=== PATIENT | male | born 1985 | race Two or more races ===

== ENCOUNTER 2019-11-17 09:41 | Emergency (ER) | payer MEDICAID, OTHER ==
[~2019-11-17] VITALS: Ht 177.8 cm; Wt 136.1 kg
[2019-11-17 09:48] VITALS: BP 123/80
[2019-11-17 10:30] LABS: Eosinophils # (auto) 0.2 uL; Neutrophils # (auto) 6.3 uL
[2019-11-17 10:33] LABS: Basophils # (auto) 0 uL; Basophils % (auto) 0.5 % (0.0-2.0); Eosinophils % (auto) 2.2 % (0.0-7.0); Hematocrit 40.2 % (41.0-53.0); Hemoglobin 12.7 g/dL (13.5-17.5); Lymphocytes # (auto) 1.8 uL; Lymphocytes % (auto) 19.9 % (10.0-50.0); Mean Corpuscular Hemoglobin 24.6 pg (28.0-32.0); Mean Corpuscular Hgb Conc. 31.7 g/dL (32.0-36.0); Mean Corpuscular Volume 77.8 fL (80.0-100.0); Monocytes # (auto) 0.7 uL; Monocytes % (auto) 7.4 % (0.0-12.0); Nucleated Red Blood Cells % 0.2 %; Platelet Count (auto) 311 10^3/uL (140-450); Red Blood Cells 5.16 10^6/uL (4.5-5.90); Red Cell Distribution Width 17.5 % (11.8-14.3)
[2019-11-17 10:45] LABS: Albumin 3.3 g/dL (3.4-5.0); Calcium 8.4 mg/dL (8.5-10.1); Potassium 3.7 mmol/L (3.5-5.1)
[2019-11-17 10:48] LABS: BUN/Creatinine Ratio 17.3; Bilirubin, Total 0.3 mg/dL (0.2-1.0); Total Protein 7.8 g/dL (6.4-8.2)
[2019-11-17 10:49] LABS: INR 0.98 (0.9-1.15); Partial Thromboplastin Time 26.8 sec (23.64-32.05)
== END 2019-11-17 12:13 | disposition left against medical advice (07) ==
LOC: ER 09:41 → EDBD 09:41 → ER 12:13
DX: I83.90 Asymptomatic varicose veins of unspecified lower extremity (principal); Z53.21 Procedure and treatment not carried out due to patient leaving prior to being seen by health care provider
CPT/HCPCS: 36415; 80053; 85025; 85610; 85730; 86850; 86900; 86901

== ENCOUNTER 2021-03-04 10:31 | Emergency (ER) | payer MEDICAID ==
[~2021-03-04] VITALS: Ht 177.8 cm; Wt 158.8 kg
[2021-03-04 10:31] VITALS: BP 150/80
== END 2021-03-04 11:15 | disposition left against medical advice (07) ==
LOC: ER 10:31 → EDBD 10:31 → ER 11:15
DX: I83.892 Varicose veins of left lower extremity with other complications (principal); J45.909 Unspecified asthma, uncomplicated
CPT/HCPCS: 12001

== ENCOUNTER 2023-08-19 15:05 | Emergency (ER) | payer MEDICAID ==
[~2023-08-19] VITALS: Ht 193 cm; Wt 160.0 kg
[2023-08-19 16:01] LABS: Hemoglobin 12.4 g/dL (13.5-17.5)
[2023-08-19 16:03] LABS: Basophils # (auto) 0 10 ^3/uL (0-0.2); Basophils % (auto) 0.5 % (0.0-2.0); Eosinophils # (auto) 0.2 10 ^3/uL (0-0.8); Eosinophils % (auto) 1.8 % (0.0-7.0); Hematocrit 40.3 % (41.0-53.0); Lymphocytes # (auto) 1.3 10 ^3/uL (0.4-5.4); Lymphocytes % (auto) 13.5 % (10.0-50.0); Mean Corpuscular Hemoglobin 24.9 pg (28.0-32.0); Mean Corpuscular Hgb Conc. 30.7 g/dL (32.0-36.0); Mean Corpuscular Volume 81.2 fL (80.0-100.0); Monocytes # (auto) 0.6 10 ^3/uL (0-1.3); Monocytes % (auto) 6.1 % (0.0-12.0); Neutrophils # (auto) 7.3 10 ^3/uL (1.6-8.6); Neutrophils % (auto) 78.1 % (37.0-80.0); Red Blood Cells 4.96 10^6/uL (4.5-5.90); White Blood Cell 9.4 10^3/uL (4.4-10.8)
[2023-08-19 16:22] LABS: Alanine Aminotransferase 22 U/L (7-40); Albumin 4.6 g/dL (3.2-4.8); Alkaline Phosphatase 104 U/L (46-116); Anion Gap 8 (5-15); Aspartate Aminotransferase 22 U/L (13-40); BUN/Creatinine Ratio 16.5 (10.0-20.0); Bilirubin, Total 0.3 mg/dL (0.2-1.0); Blood Urea Nitrogen 14 mg/dL (9-23); Calcium 9.7 mg/dL (8.5-10.1); Carbon Dioxide 33 mmol/L (20-30); Chloride 95 mmol/L (98-107); Glucose 309 mg/dL (74-106); Lactic Acid w/Reflex 2.3 mmol/L (0.4-2.0); Potassium 4.4 mmol/L (3.5-5.1); Sodium 136 mmol/L (136-145); Total Protein 8.5 g/dL (5.7-8.2)
[2023-08-19 16:50] LABS: COVID19 ANTIGEN SOFIA FIA NEGATIVE (NEGATIVE)
[2023-08-19] MEDS ORDERED: HYDROcodone-ACET 10/325MG TAB PO ONE (18:30)
[2023-08-19 21:27] VITALS: PULSE 100; RESP 20; O2SAT 96
[2023-08-20] VITALS: BP 139/86; PULSE 113; RESP 20; TEMP 98.7; O2SAT 94
== END 2023-08-20 00:35 | disposition short-term general hospital (02) ==
LOC: ER 15:05 → EDBD 15:05 → EDUNIT# 15:05 → ER 08-20 00:35
DX: J95.03 Malfunction of tracheostomy stoma (principal); I11.0 Hypertensive heart disease with heart failure; I50.9 Heart failure, unspecified; E11.9 Type 2 diabetes mellitus without complications; J44.9 Chronic obstructive pulmonary disease, unspecified; I48.91 Unspecified atrial fibrillation; Z98.890 Other specified postprocedural states; Z20.822 Contact with and (suspected) exposure to COVID-19
CPT/HCPCS: 36415; 71045; 80053; 83605; 83880; 85025; 87040; 87426; 93005

== ENCOUNTER 2023-08-29 10:06 | Inpatient (IN) | payer MEDICAID ==
[~2023-08-29] VITALS: Ht 182.9 cm; Wt 149.5 kg
[2023-08-29] VITALS (8 sets, daily range): BP systolic 121–126; BP diastolic 65–76; PULSE 99–135; RESP 15–28; TEMP 99.1; O2SAT 70–99
[2023-08-29 11:27] LABS: Alanine Aminotransferase 16 U/L (7-40); Alkaline Phosphatase 84 U/L (46-116); Anion Gap 6 (5-15); BUN/Creatinine Ratio 17.1 (10.0-20.0); Blood Urea Nitrogen 14 mg/dL (9-23); Carbon Dioxide 35 mmol/L (20-30); Chloride 96 mmol/L (98-107); Glucose 177 mg/dL (74-106); Lactic Acid w/Reflex 2.1 mmol/L (0.4-2.0); Potassium 3.9 mmol/L (3.5-5.1); Sodium 137 mmol/L (136-145)
[2023-08-29 11:28] LABS: Albumin 4.3 g/dL (3.2-4.8); Aspartate Aminotransferase 16 U/L (13-40); Bilirubin, Total 0.7 mg/dL (0.2-1.0); Total Protein 7.9 g/dL (5.7-8.2)
[2023-08-29 11:39] LABS: INR 1.04 (0.9-1.15); Partial Thromboplastin Time 30.6 SEC (24.5-34.5); Prothrombin Time 10.9 sec (9.3-11.8)
[2023-08-29 12:06] LABS: Eosinophils # (auto) 0 10 ^3/uL (0-0.8); Lymphocytes # (auto) 0.7 10 ^3/uL (0.4-5.4); Monocytes # (auto) 0.7 10 ^3/uL (0-1.3); Nucleated Red Blood Cells % 0.1 %; Red Blood Cells 4.69 10^6/uL (4.5-5.90)
[2023-08-29 12:12] LABS: Basophils # (auto) 0.1 10 ^3/uL (0-0.2); Basophils % (auto) 0.5 % (0.0-2.0); Eosinophils % (auto) 0.4 % (0.0-7.0); Hematocrit 37.8 % (41.0-53.0); Hemoglobin 11.7 g/dL (13.5-17.5); Lymphocytes % (auto) 6.5 % (10.0-50.0); Mean Corpuscular Hemoglobin 24.9 pg (28.0-32.0); Mean Corpuscular Hgb Conc. 30.9 g/dL (32.0-36.0); Mean Corpuscular Volume 80.6 fL (80.0-100.0); Monocytes % (auto) 7.2 % (0.0-12.0); Neutrophils # (auto) 8.7 10 ^3/uL (1.6-8.6); Neutrophils % (auto) 85.4 % (37.0-80.0); Red Cell Distribution Width 17.4 % (11.8-14.3); White Blood Cell 10.2 10^3/uL (4.4-10.8)
[2023-08-29 12:42] LABS: Rapid Influenza A Negative (Negative); Rapid Influenza B Negative (Negative)
[2023-08-29 12:43] LABS: COVID19 ANTIGEN SOFIA FIA NEGATIVE (NEGATIVE)
[2023-08-29] MEDS ORDERED: ALBUTEROL MEDNEB 2.5 mg/3ml NEB NEB ONE (13:45)
[2023-08-29] MEDS ORDERED: IPRATROPIUM BROM 0.5 MG/2.5ML INH SOL NEB ONE (13:45)
[2023-08-29] MEDS ORDERED: FUROSEMIDE 40 MG/4 ML VIAL IV ONE (14:00)
[2023-08-29] MEDS ORDERED: FUROSEMIDE 100 MG/10ML VIAL IV ONE (14:15)
[2023-08-29] MEDS ORDERED: ONDANSETRON HCL 4 MG/2 ML VIAL IV PRN (15:00)
[2023-08-29] MEDS ORDERED: methylPREDNISolone SOD SUCC 125 MG/2 ML VL IV ONE (15:00)
[2023-08-29] MEDS ORDERED: DOCUSATE SOD 100 MG CAP PO PRN (15:00)
[2023-08-29] MEDS ORDERED: SODIUM CHLORIDE 0.9% 1,000 ML IV SCH (15:00)
[2023-08-29] MEDS ORDERED: DEXTROSE (50%) 50ML SYRG IV PRN (15:00)
[2023-08-29] MEDS ORDERED: MORPHINE SULFATE INJ 2 MG/ml SYRG IV PRN (15:00)
[2023-08-29 16:19] LABS: Base Excess 5.5 mmol/L (-2.0-2.0)
[2023-08-29 16:31] LABS: Lactic Acid w/Reflex 2.1 mmol/L (0.4-2.0)
[2023-08-29] MEDS: ACCU-CHEK COMFORT CURVE STRIP VI SCH ×2 (17:00→22:15)
[2023-08-29] MEDS: cefTRIAXone 1GM/50ML D5W 50 ML IV SCH (17:07)
[2023-08-29 17:52] LABS: Urine Bacteria NONE SEEN /hpf (None Seen); Urine Blood 1+ /uL (Negative); Urine Clarity Clear (Clear); Urine Color Colorless (Yellow); Urine Mucus FEW (None Seen); Urine Protein, UAD Negative (Negative); Urine Specific Gravity 1.012 (1.001-1.035); Urine Urobilinogen Normal (Negative); Urine WBC 1 /hpf (0 - 3); Urine pH 5.5 (5.0-8.0)
[2023-08-29] MEDS: LEVALBUTEROL HCL 1.25 MG/3 ML NEB NEB SCH ×2 (18:08→22:31)
[2023-08-29] MEDS: IPRATROPIUM BROM 0.5 MG/2.5ML INH SOL NEB SCH ×2 (18:08→22:31)
[2023-08-29] MEDS: AZITHROMYCIN 500MG/ 250ML 250 ML IV SCH (18:25)
[2023-08-29] MEDS: InsuLIN REG 1unit/0.01ml Soln (100units/ml) SC SCH ×2 (19:07→22:21)
[2023-08-29] MEDS ORDERED: ACETAMINOPHEN 325 MG TAB PO PRN (19:15)
[2023-08-29] MEDS: SODIUM CHLORIDE 0.9% 1,000 ML IV SCH (19:56)
[2023-08-29] MEDS: ENOXAPARIN SOD 100 MG/1 ML SYRINGE SC SCH (22:20)
[2023-08-29] MEDS: methylPREDNISolone SOD SUCC 125 MG/2 ML VL IV SCH (22:20)
[2023-08-30] VITALS (33 sets, daily range): BP systolic 100–153; BP diastolic 52–91; PULSE 89–133; RESP 14–50; TEMP 98–98.3; O2SAT 21–96
[2023-08-30] MEDS: IPRATROPIUM BROM 0.5 MG/2.5ML INH SOL NEB SCH ×3 (01:52→11:37)
[2023-08-30] MEDS: LEVALBUTEROL HCL 1.25 MG/3 ML NEB NEB SCH ×6 (01:52→22:29)
[2023-08-30 05:47] LABS: Basophils # (auto) 0 10 ^3/uL (0-0.2); Eosinophils # (auto) 0 10 ^3/uL (0-0.8); Hematocrit 40.5 % (41.0-53.0); Hemoglobin 12.5 g/dL (13.5-17.5); Lymphocytes # (auto) 0.6 10 ^3/uL (0.4-5.4); Lymphocytes % (auto) 5.7 % (10.0-50.0); Mean Corpuscular Hemoglobin 24.8 pg (28.0-32.0); Mean Corpuscular Hgb Conc. 30.9 g/dL (32.0-36.0); Mean Corpuscular Volume 80.4 fL (80.0-100.0); Monocytes # (auto) 0.2 10 ^3/uL (0-1.3); Monocytes % (auto) 1.8 % (0.0-12.0); Neutrophils # (auto) 9.4 10 ^3/uL (1.6-8.6); Neutrophils % (auto) 92.5 % (37.0-80.0); Red Blood Cells 5.04 10^6/uL (4.5-5.90); Red Cell Distribution Width 17.5 % (11.8-14.3); White Blood Cell 10.2 10^3/uL (4.4-10.8)
[2023-08-30 06:12] LABS: Alanine Aminotransferase 13 U/L (7-40); Alkaline Phosphatase 95 U/L (46-116); Anion Gap 6 (5-15); BUN/Creatinine Ratio 15.4 (10.0-20.0); Blood Urea Nitrogen 12 mg/dL (9-23); Calcium 9.4 mg/dL (8.7-10.4); Carbon Dioxide 38 mmol/L (20-30); Chloride 94 mmol/L (98-107); Glucose 238 mg/dL (74-106); Potassium 3.7 mmol/L (3.5-5.1); Sodium 138 mmol/L (136-145)
[2023-08-30 06:13] LABS: Albumin 4.6 g/dL (3.2-4.8); Aspartate Aminotransferase 15 U/L (13-40); Bilirubin, Total 0.4 mg/dL (0.2-1.0); Total Protein 8.9 g/dL (5.7-8.2)
[2023-08-30] MEDS: methylPREDNISolone SOD SUCC 125 MG/2 ML VL IV SCH ×2 (06:25→13:14)
[2023-08-30] MEDS: ACCU-CHEK COMFORT CURVE STRIP VI SCH ×3 (06:48→13:14)
[2023-08-30] MEDS ORDERED: LORazepam 2MG/ML-1ML VIAL IV ONE (07:00)
[2023-08-30] MEDS: InsuLIN REG 1unit/0.01ml Soln (100units/ml) SC SCH ×2 (07:19→11:08)
[2023-08-30] MEDS: AZITHROMYCIN 500MG/ 250ML 250 ML IV SCH (09:44)
[2023-08-30] MEDS: ENOXAPARIN SOD 100 MG/1 ML SYRINGE SC SCH (09:44)
[2023-08-30] MEDS: cefTRIAXone 1GM/50ML D5W 50 ML IV SCH (09:44)
[2023-08-30] MEDS: SODIUM CHLORIDE 0.9% 1,000 ML IV SCH (09:47)
[2023-08-30] MEDS ORDERED: PANTOPRAZOLE 40 MG/10 ML VIAL INJ IV SCH (10:00)
[2023-08-30] MEDS ORDERED: FUROSEMIDE 40 MG/4 ML VIAL IV ONE (10:45)
[2023-08-30] MEDS ORDERED: LORazepam 2MG/ML-1ML VIAL IV PRN ×2 (10:45→16:15)
[2023-08-30] MEDS ORDERED: LABETALOL HCL 5 MG/ML 4ML SYRINGE IV PRN (14:45)
[2023-08-30 15:03] LABS: Base Excess 10.9 mmol/L (-2.0-2.0)
[2023-08-30] MEDS ORDERED: METOPROLOL TARTRATE 50 MG TAB PO ONE (15:15)
[2023-08-30] MEDS ORDERED: FAMO20TA10 PO (15:43)
[2023-08-30] MEDS ORDERED: FURO1TAB33 PO (15:43)
[2023-08-30] MEDS ORDERED: INSLISPI SC (15:43)
[2023-08-30] MEDS ORDERED: APIX5TAB PO (15:43)
[2023-08-30] MEDS ORDERED: VALP250S19 PO (15:43)
[2023-08-30] MEDS ORDERED: CLON0.1T PO (15:43)
[2023-08-30] MEDS ORDERED: LORA-1121 PO (15:43)
[2023-08-30] MEDS ORDERED: ARIP1TAB7 PO (15:43)
[2023-08-30] MEDS ORDERED: METF-370 PO (15:43)
[2023-08-30] MEDS ORDERED: hydrALAZINE HCL 20 MG/ML VL IV PRN (15:45)
[2023-08-30] MEDS ORDERED: LOSARTAN POTASSIUM 25 MG TAB PO ONE (16:00)
[2023-08-30] MEDS: FUROSEMIDE 20 MG/2 ML VIAL IV SCH (16:15)
[2023-08-30] MEDS: INSULIN LISPRO (HUMAN) 100 UNITS/ML ML SC SCH (16:16)
[2023-08-30 18:25] LABS: Base Excess 11.7 mmol/L (-2.0-2.0)
[2023-08-30] MEDS ORDERED: DexmedeTOMIDine 200 MCG in D5W 5% 48 ML IV SCH (19:00)
[2023-08-30] MEDS: METOPROLOL TARTRATE 50 MG TAB PO SCH ×2 (22:00)
[2023-08-30] MEDS: MUPIROCIN 2% OINT 15gm or 22gm FOR MRSA NARES EACHNOSTRI SCH (22:00)
[2023-08-30] MEDS: methylPREDNISolone SOD SUCC 40 MG/ML VL IV SCH (23:25)
[2023-08-30] MEDS: ENOXAPARIN SOD 150 MG/1 ML SYRINGE SC SCH (23:26)
[2023-08-31] VITALS (40 sets, daily range): BP systolic 99–136; BP diastolic 6–90; PULSE 58–98; RESP 12–24; TEMP 97.7–98.3; O2SAT 89–98
[2023-08-31] MEDS: LEVALBUTEROL HCL 1.25 MG/3 ML NEB NEB SCH ×4 (01:58→21:51)
[2023-08-31 06:25] LABS: Basophils # (auto) 0 10 ^3/uL (0-0.2); Eosinophils # (auto) 0 10 ^3/uL (0-0.8); Mean Corpuscular Hgb Conc. 29.6 g/dL (32.0-36.0); Monocytes # (auto) 0.8 10 ^3/uL (0-1.3); Neutrophils % (auto) 90.2 % (37.0-80.0); Nucleated Red Blood Cells % 0.1 %; Red Blood Cells 4.79 10^6/uL (4.5-5.90)
[2023-08-31 06:27] LABS: Eosinophils % (auto) 0.1 % (0.0-7.0); Hematocrit 39.3 % (41.0-53.0); Hemoglobin 11.6 g/dL (13.5-17.5); Lymphocytes # (auto) 0.6 10 ^3/uL (0.4-5.4); Lymphocytes % (auto) 4.1 % (10.0-50.0); Mean Corpuscular Hemoglobin 24.3 pg (28.0-32.0); Mean Corpuscular Volume 82.2 fL (80.0-100.0); Monocytes % (auto) 5.6 % (0.0-12.0); Neutrophils # (auto) 12.4 10 ^3/uL (1.6-8.6); Red Cell Distribution Width 17.4 % (11.8-14.3); White Blood Cell 13.7 10^3/uL (4.4-10.8)
[2023-08-31 06:43] LABS: Chloride 94 mmol/L (98-107); Potassium 4.3 mmol/L (3.5-5.1); Sodium 138 mmol/L (136-145)
[2023-08-31 06:44] LABS: Calcium 9.6 mg/dL (8.5-10.1)
[2023-08-31 06:46] LABS: Anion Gap 3.99999 (5-15); Carbon Dioxide > 40 mmol/L (20-30)
[2023-08-31 06:48] LABS: Glucose 282 mg/dL (74-106)
[2023-08-31 06:49] LABS: Blood Urea Nitrogen 20 mg/dL (9-23); LDL Cholesterol 119 mg/dL (< 100); Triglycerides 189 mg/dL (< 150)
[2023-08-31 06:51] LABS: Cholesterol 191 mg/dL (< 200); HDL Cholesterol 40 mg/dL (40-59)
[2023-08-31] MEDS: METOPROLOL TARTRATE 50 MG TAB PO SCH ×3 (07:01→22:00)
[2023-08-31] MEDS: INSULIN LISPRO (HUMAN) 100 UNITS/ML ML SC SCH ×3 (07:14→16:41)
[2023-08-31] MEDS: FUROSEMIDE 20 MG/2 ML VIAL IV SCH ×2 (07:16→16:41)
[2023-08-31 07:29] LABS: Base Excess 12.2 mmol/L (-2.0-2.0)
[2023-08-31 07:34] LABS: Magnesium 2.4 mg/dL (1.6-2.6)
[2023-08-31] MEDS: methylPREDNISolone SOD SUCC 40 MG/ML VL IV SCH ×2 (08:21→23:12)
[2023-08-31] MEDS: ENOXAPARIN SOD 150 MG/1 ML SYRINGE SC SCH ×2 (08:21→23:12)
[2023-08-31] MEDS: PANTOPRAZOLE 40 MG/10 ML VIAL INJ IV SCH (08:21)
[2023-08-31] MEDS: MUPIROCIN 2% OINT 15gm or 22gm FOR MRSA NARES EACHNOSTRI SCH ×2 (08:22→22:00)
[2023-08-31] MEDS: LOSARTAN POTASSIUM 25 MG TAB PO SCH (08:22)
[2023-08-31] MEDS ORDERED: METO25TA5 PO (08:59)
[2023-08-31] MEDS ORDERED: ENOXAPARIN SOD 40 MG/0.4 ML SYRINGE SC SCH (10:00)
[2023-08-31] MEDS ORDERED: INSULIN LANTUS (GLARGINE) 1 /0.01ml (100units/ml) SC SCH (10:00)
[2023-08-31] MEDS ORDERED: acetaZOLAMIDE SODIUM 500 MG VL IV ONE (10:15)
[2023-08-31] MEDS ORDERED: INSULIN LANTUS (GLARGINE) 1 /0.01ml (100units/ml) SC ONE (10:45)
[2023-08-31] MEDS: VALPROIC ACID 250 MG/5 ML ORAL SOLN PO SCH ×2 (11:46→22:00)
[2023-09-01] VITALS (25 sets, daily range): BP systolic 90–132; BP diastolic 42–79; PULSE 59–138; RESP 13–26; TEMP 97.7–99.5; O2SAT 88–100
[2023-09-01] MEDS: LEVALBUTEROL HCL 1.25 MG/3 ML NEB NEB SCH ×6 (02:26→22:00)
[2023-09-01] MEDS: FUROSEMIDE 20 MG/2 ML VIAL IV SCH ×2 (06:00→17:36)
[2023-09-01] MEDS: VALPROIC ACID 250 MG/5 ML ORAL SOLN PO SCH ×3 (06:00→23:27)
[2023-09-01 06:18] LABS: Alanine Aminotransferase 18 U/L (7-40); Alkaline Phosphatase 83 U/L (46-116); Anion Gap 4 (5-15); BUN/Creatinine Ratio 28.2 (10.0-20.0); Blood Urea Nitrogen 24 mg/dL (9-23); Calcium 9.7 mg/dL (8.7-10.4); Carbon Dioxide 36 mmol/L (20-30); Chloride 97 mmol/L (98-107); Glucose 221 mg/dL (74-106); Magnesium 2.5 mg/dL (1.6-2.6); Potassium 4.1 mmol/L (3.5-5.1); Sodium 137 mmol/L (136-145)
[2023-09-01 06:19] LABS: Albumin 4.2 g/dL (3.2-4.8); Aspartate Aminotransferase 14 U/L (13-40); Bilirubin, Total 0.2 mg/dL (0.2-1.0); Total Protein 8.1 g/dL (5.7-8.2)
[2023-09-01 06:24] LABS: Eosinophils # (auto) 0.2 10 ^3/uL (0-0.8); Hemoglobin 11.9 g/dL (13.5-17.5); Lymphocytes # (auto) 1.5 10 ^3/uL (0.4-5.4); Monocytes # (auto) 0.9 10 ^3/uL (0-1.3)
[2023-09-01 06:27] LABS: Basophils # (auto) 0 10 ^3/uL (0-0.2); Basophils % (auto) 0.4 % (0.0-2.0); Eosinophils % (auto) 1.4 % (0.0-7.0); Lymphocytes % (auto) 12.5 % (10.0-50.0); Mean Corpuscular Hemoglobin 24.9 pg (28.0-32.0); Mean Corpuscular Hgb Conc. 30.5 g/dL (32.0-36.0); Mean Corpuscular Volume 81.4 fL (80.0-100.0); Monocytes % (auto) 7.6 % (0.0-12.0); Neutrophils # (auto) 9.5 10 ^3/uL (1.6-8.6); Neutrophils % (auto) 78.1 % (37.0-80.0); Nucleated Red Blood Cells % 0.4 %; Red Blood Cells 4.79 10^6/uL (4.5-5.90); Red Cell Distribution Width 17.4 % (11.8-14.3); White Blood Cell 12.1 10^3/uL (4.4-10.8)
[2023-09-01] MEDS: INSULIN LISPRO (HUMAN) 100 UNITS/ML ML SC SCH ×3 (06:59→17:45)
[2023-09-01 09:09] LABS: Base Excess 6.8 mmol/L (-2.0-2.0)
[2023-09-01] MEDS: ARIPIPRAZOLE 30 MG PO SCH (10:00)
[2023-09-01] MEDS ORDERED: INSULIN LANTUS (GLARGINE) 1 /0.01ml (100units/ml) SC SCH ×2 (10:00)
[2023-09-01] MEDS: METOPROLOL TARTRATE 50 MG TAB PO SCH ×2 (10:00→22:00)
[2023-09-01] MEDS: LOSARTAN POTASSIUM 25 MG TAB PO SCH (10:00)
[2023-09-01] MEDS: PANTOPRAZOLE 40 MG/10 ML VIAL INJ IV SCH (10:10)
[2023-09-01] MEDS: methylPREDNISolone SOD SUCC 40 MG/ML VL IV SCH ×2 (10:10→23:28)
[2023-09-01] MEDS: ENOXAPARIN SOD 150 MG/1 ML SYRINGE SC SCH ×2 (10:10→23:29)
[2023-09-01] MEDS: MUPIROCIN 2% OINT 15gm or 22gm FOR MRSA NARES EACHNOSTRI SCH ×2 (10:16→22:00)
[2023-09-01] MEDS ORDERED: DEXTROSE (50%) 50ML SYRG IV PRN (11:30)
[2023-09-01] MEDS: ACCU-CHEK COMFORT CURVE STRIP VI SCH ×3 (12:00→22:00)
[2023-09-01] MEDS: INSULIN LANTUS (GLARGINE) 1 /0.01ml (100units/ml) SC SCH (12:01)
[2023-09-01] MEDS ORDERED: ATORVASTATIN 20 MG TAB PO SCH (22:00)
[2023-09-02] VITALS (22 sets, daily range): BP systolic 113–144; BP diastolic 72–93; PULSE 78–109; RESP 12–20; TEMP 97.5–98.3; O2SAT 85–98
[2023-09-02] MEDS: LEVALBUTEROL HCL 1.25 MG/3 ML NEB NEB SCH ×5 (02:00→19:00)
[2023-09-02 05:28] LABS: Basophils # (auto) 0 10 ^3/uL (0-0.2); Basophils % (auto) 0.1 % (0.0-2.0); Eosinophils # (auto) 0 10 ^3/uL (0-0.8); Monocytes # (auto) 0.3 10 ^3/uL (0-1.3)
[2023-09-02 05:29] LABS: Hematocrit 41.1 % (41.0-53.0); Hemoglobin 12.6 g/dL (13.5-17.5); Lymphocytes # (auto) 1.1 10 ^3/uL (0.4-5.4); Lymphocytes % (auto) 10.5 % (10.0-50.0); Mean Corpuscular Hemoglobin 24.8 pg (28.0-32.0); Mean Corpuscular Hgb Conc. 30.7 g/dL (32.0-36.0); Mean Corpuscular Volume 80.8 fL (80.0-100.0); Monocytes % (auto) 3.3 % (0.0-12.0); Neutrophils # (auto) 8.7 10 ^3/uL (1.6-8.6); Neutrophils % (auto) 86.1 % (37.0-80.0); Nucleated Red Blood Cells % 0.2 %; Red Cell Distribution Width 17.3 % (11.8-14.3); White Blood Cell 10.1 10^3/uL (4.4-10.8)
[2023-09-02 05:43] LABS: Chloride 100 mmol/L (98-107); Potassium 4.8 mmol/L (3.5-5.1); Sodium 137 mmol/L (136-145)
[2023-09-02 05:44] LABS: Anion Gap 2 (5-15); Calcium 9.3 mg/dL (8.7-10.4); Carbon Dioxide 35 mmol/L (20-30)
[2023-09-02 05:49] LABS: BUN/Creatinine Ratio 38.8 (10.0-20.0); Blood Urea Nitrogen 33 mg/dL (9-23); Glucose 285 mg/dL (74-106); Magnesium 2.5 mg/dL (1.6-2.6)
[2023-09-02] MEDS: ACCU-CHEK COMFORT CURVE STRIP VI SCH ×3 (07:00→19:22)
[2023-09-02] MEDS: INSULIN LISPRO (HUMAN) 100 UNITS/ML ML SC SCH ×3 (07:00→19:23)
[2023-09-02] MEDS: FUROSEMIDE 20 MG/2 ML VIAL IV SCH (07:49)
[2023-09-02] MEDS: VALPROIC ACID 250 MG/5 ML ORAL SOLN PO SCH ×2 (07:49→14:43)
[2023-09-02 08:18] LABS: Base Excess 4.9 mmol/L (-2.0-2.0)
[2023-09-02] MEDS: ARIPIPRAZOLE 30 MG PO SCH (09:38)
[2023-09-02] MEDS ORDERED: FURO1TAB33 PO (09:45)
[2023-09-02] MEDS ORDERED: PRED20TA2 PO (09:45)
[2023-09-02] MEDS ORDERED: ATOR20TA50 PO (09:46)
[2023-09-02] MEDS: METOPROLOL TARTRATE 50 MG TAB PO SCH (10:00)
[2023-09-02] MEDS: PANTOPRAZOLE 40 MG/10 ML VIAL INJ IV SCH (10:30)
[2023-09-02] MEDS: methylPREDNISolone SOD SUCC 40 MG/ML VL IV SCH (10:31)
[2023-09-02] MEDS: LOSARTAN POTASSIUM 25 MG TAB PO SCH (10:31)
[2023-09-02] MEDS: ENOXAPARIN SOD 150 MG/1 ML SYRINGE SC SCH (10:31)
[2023-09-02] MEDS: MUPIROCIN 2% OINT 15gm or 22gm FOR MRSA NARES EACHNOSTRI SCH (10:32)
[2023-09-02] MEDS: INSULIN LANTUS (GLARGINE) 1 /0.01ml (100units/ml) SC SCH (10:35)
== END 2023-09-02 21:00 | disposition home or self-care (01) | DRG 133 ==
LOC: ER 10:06 → EDBD 10:06 → TELE 15:19 → ICU CENTRL 08-30 08:35
PROVIDERS: ADMIT Internal Medicine Pulmonary Disease; ATTEND Student in an Organized Health Care Education/Training Program
PROC: 5A0935A Assistance with Respiratory Ventilation, Less than 24 Consecutive Hours, High Flow/Velocity Cannula (ICD-10-PCS; principal; 2023-08-29)
PROC: 5A0935A Assistance with Respiratory Ventilation, Less than 24 Consecutive Hours, High Flow/Velocity Cannula (ICD-10-PCS; 2023-08-30)
PROC: 05HB33Z Insertion of Infusion Device into Right Basilic Vein, Percutaneous Approach (ICD-10-PCS; 2023-08-30)
PROC: B54MZZA Ultrasonography of Right Upper Extremity Veins, Guidance (ICD-10-PCS; 2023-08-30)
PROC: 5A0935A Assistance with Respiratory Ventilation, Less than 24 Consecutive Hours, High Flow/Velocity Cannula (ICD-10-PCS; 2023-08-31)
DX: J96.21 Acute and chronic respiratory failure with hypoxia (principal); E87.20 Acidosis, unspecified; I48.20 Chronic atrial fibrillation, unspecified; E66.2 Morbid (severe) obesity with alveolar hypoventilation; I50.42 Chronic combined systolic (congestive) and diastolic (congestive) heart failure; D63.8 Anemia in other chronic diseases classified elsewhere; I11.0 Hypertensive heart disease with heart failure; J45.901 Unspecified asthma with (acute) exacerbation; J96.22 Acute and chronic respiratory failure with hypercapnia; I87.2 Venous insufficiency (chronic) (peripheral); F31.9 Bipolar disorder, unspecified; B95.62 Methicillin resistant Staphylococcus aureus infection as the cause of diseases classified elsewhere; J44.1 Chronic obstructive pulmonary disease with (acute) exacerbation; J98.11 Atelectasis; E11.9 Type 2 diabetes mellitus without complications; Z68.31 Body mass index [BMI] 31.0-31.9, adult; Z93.0 Tracheostomy status; Z53.29 Procedure and treatment not carried out because of patient's decision for other reasons
CPT/HCPCS: 36415; 36600; 71045; 80048; 80053; 80061; 81001; 82805; 82962; 83036; 83605; 83735; 83880; 84443; 84484; 85025; 85379; 85610; 85730; 87040; 87070; 87077; 87081; 87186; 87205; 87426; 87804; 93005; 93306; 93970; 94002; 94003; 94640; 97110; 97116; 97163; 97530; A4605; C9113; G0378; J0696; J1815; J7060

== ENCOUNTER 2023-10-02 05:41 | Inpatient (IN) | payer MEDICAID ==
[2023-10-02] VITALS (9 sets, daily range): BP systolic 129; BP diastolic 71–79; PULSE 73–91; RESP 18–20; TEMP 98.2; O2SAT 95–99
[~2023-10-02] VITALS: Ht 172.7 cm; Wt 147.6 kg
[~2023-10-02 05:41] MED LIST: APIX5TAB PO; ARIP1TAB7 PO; ATOR20TA50 PO; CLON0.1T PO; FAMO20TA10 PO; FURO1TAB33 PO; INSLISPI SC; LORA-1121 PO; METF-370 PO; METO25TA5 PO; PRED20TA2 PO; VALP250S19 PO
[2023-10-02 06:48] LABS: Basophils # (auto) 0 10 ^3/uL (0-0.2); Basophils % (auto) 0.5 % (0.0-2.0); Eosinophils # (auto) 0.3 10 ^3/uL (0-0.8); Monocytes # (auto) 0.5 10 ^3/uL (0-1.3); Nucleated Red Blood Cells % 0.2 %
[2023-10-02 06:51] LABS: Eosinophils % (auto) 3.5 % (0.0-7.0); Hematocrit 35.2 % (41.0-53.0); Hemoglobin 10.6 g/dL (13.5-17.5); Lymphocytes # (auto) 1.5 10 ^3/uL (0.4-5.4); Lymphocytes % (auto) 19.9 % (10.0-50.0); Mean Corpuscular Hemoglobin 24.6 pg (28.0-32.0); Mean Corpuscular Hgb Conc. 30.1 g/dL (32.0-36.0); Mean Corpuscular Volume 81.6 fL (80.0-100.0); Monocytes % (auto) 7.3 % (0.0-12.0); Neutrophils # (auto) 5.2 10 ^3/uL (1.6-8.6); Neutrophils % (auto) 68.8 % (37.0-80.0); Red Blood Cells 4.32 10^6/uL (4.5-5.90); Red Cell Distribution Width 16.9 % (11.8-14.3); White Blood Cell 7.5 10^3/uL (4.4-10.8)
[2023-10-02 07:17] LABS: INR 1.04 (0.9-1.15); Partial Thromboplastin Time 33.9 SEC (24.5-34.5); Prothrombin Time 10.9 sec (9.3-11.8)
[2023-10-02 07:18] LABS: Base Excess 18.4 mmol/L (-2.0-2.0)
[2023-10-02 07:20] LABS: Alanine Aminotransferase 18 U/L (7-40); Albumin 4.1 g/dL (3.2-4.8); Alkaline Phosphatase 97 U/L (46-116); Aspartate Aminotransferase < 8 U/L (13-40); BUN/Creatinine Ratio 31.7 (10.0-20.0); Blood Urea Nitrogen 20 mg/dL (9-23); Calcium 9.1 mg/dL (8.7-10.4); Chloride 96 mmol/L (98-107); Glucose 179 mg/dL (74-106); Magnesium 1.8 mg/dL (1.6-2.6); Potassium 3.8 mmol/L (3.5-5.1); Sodium 142 mmol/L (136-145)
[2023-10-02 07:21] LABS: Bilirubin, Total 0.3 mg/dL (0.2-1.0); Total Protein 6.9 g/dL (5.7-8.2)
[2023-10-02 07:38] LABS: Anion Gap 5.99999 (5-15); Carbon Dioxide > 40 mmol/L (20-30)
[2023-10-02 08:22] LABS: Urine Bacteria NONE SEEN /hpf (None Seen); Urine Blood Negative /uL (Negative); Urine Clarity Clear (Clear); Urine Protein, UAD Negative (Negative); Urine Specific Gravity 1.008 (1.001-1.035); Urine Urobilinogen Normal (Negative); Urine WBC 1 /hpf (0 - 3)
[2023-10-02 08:25] LABS: Urine Color Yellow (Yellow)
[2023-10-02] MEDS ORDERED: MORPHINE SULFATE 4 MG/ML SYR/VIAL IV ONE (08:45)
[2023-10-02] MEDS ORDERED: ONDANSETRON HCL 4 MG/2 ML VIAL IV ONE (08:45)
[2023-10-02 10:11] LABS: Base Excess 14.6 mmol/L (-2.0-2.0)
[2023-10-02] MEDS ORDERED: VANCOMYCIN PER PHARMACY 0 MG IV SCH (10:45)
[2023-10-02] MEDS ORDERED: MORPHINE SULFATE INJ 2 MG/ml SYRG IV PRN (10:45)
[2023-10-02] MEDS ORDERED: DEXTROSE (50%) 50ML SYRG IV PRN (10:45)
[2023-10-02] MEDS ORDERED: ONDANSETRON HCL 4 MG/2 ML VIAL IV PRN (10:45)
[2023-10-02] MEDS ORDERED: NITROGLYCERIN 0.4 MG SL TAB SL PRN (10:45)
[2023-10-02] MEDS ORDERED: LORazepam 0.5 MG TAB PO PRN (10:45)
[2023-10-02] MEDS: ACCU-CHEK COMFORT CURVE STRIP VI SCH ×3 (11:30→21:33)
[2023-10-02 11:43] LABS: Triglycerides 191 mg/dL (< 150)
[2023-10-02 11:44] LABS: LDL Cholesterol 89 mg/dL (< 100)
[2023-10-02 11:45] LABS: Cholesterol 147 mg/dL (< 200); HDL Cholesterol 38 mg/dL (40-59)
[2023-10-02] MEDS ORDERED: ALBUTEROL SULF 2.5 MG/0.5ML(0.5%) NEB SOLN NEB SCH (12:00)
[2023-10-02] MEDS ORDERED: ALBUTEROL SULF 2.5 MG/0.5ML(0.5%) NEB SOLN NEB PRN (12:00)
[2023-10-02] MEDS: InsuLIN REG 1unit/0.01ml Soln (100units/ml) SC SCH ×3 (12:21→21:33)
[2023-10-02] MEDS: ALBUTEROL SULF 2.5 MG/0.5ML(0.5%) NEB SOLN NEB SCH ×3 (13:52→21:41)
[2023-10-02] MEDS: IPRATROPIUM BROM 0.5 MG/2.5ML INH SOL NEB SCH ×3 (13:53→21:40)
[2023-10-02] MEDS: VALPROIC ACID 250 MG/5 ML ORAL SOLN PO SCH ×2 (14:50→21:24)
[2023-10-02] MEDS: cloNIDine HCL 0.1 MG TAB PO SCH ×2 (14:50→21:25)
[2023-10-02] MEDS: METOPROLOL TARTRATE 50 MG TAB PO SCH (21:24)
[2023-10-02] MEDS: APIXABAN 5 MG TAB PO SCH (21:25)
[2023-10-02] MEDS: FAMOTIDINE 20 MG TAB PO SCH (21:25)
[2023-10-02] MEDS: ATORVASTATIN 20 MG TAB PO SCH (21:25)
[2023-10-03] VITALS (8 sets, daily range): BP systolic 121–130; BP diastolic 65–67; PULSE 72–85; RESP 16–20; TEMP 98.1–98.6; O2SAT 94–99
[2023-10-03] MEDS: IPRATROPIUM BROM 0.5 MG/2.5ML INH SOL NEB SCH ×3 (02:05→10:35)
[2023-10-03] MEDS: ALBUTEROL SULF 2.5 MG/0.5ML(0.5%) NEB SOLN NEB SCH ×3 (02:05→10:35)
[2023-10-03] MEDS: VALPROIC ACID 250 MG/5 ML ORAL SOLN PO SCH ×3 (05:24→22:04)
[2023-10-03] MEDS: cloNIDine HCL 0.1 MG TAB PO SCH ×3 (05:25→21:56)
[2023-10-03] MEDS: ACETAMINOPHEN 325 MG TAB PO PRN (05:25)
[2023-10-03 06:13] LABS: Basophils # (auto) 0 10 ^3/uL (0-0.2); Basophils % (auto) 0.3 % (0.0-2.0); Eosinophils # (auto) 0.2 10 ^3/uL (0-0.8); Lymphocytes # (auto) 1.3 10 ^3/uL (0.4-5.4); Lymphocytes % (auto) 17.5 % (10.0-50.0); Monocytes # (auto) 0.6 10 ^3/uL (0-1.3); White Blood Cell 7.3 10^3/uL (4.4-10.8)
[2023-10-03 06:16] LABS: Hematocrit 34.1 % (41.0-53.0); Hemoglobin 10.4 g/dL (13.5-17.5); Mean Corpuscular Hgb Conc. 30.3 g/dL (32.0-36.0); Mean Corpuscular Volume 82.5 fL (80.0-100.0); Monocytes % (auto) 7.7 % (0.0-12.0); Neutrophils # (auto) 5.2 10 ^3/uL (1.6-8.6); Neutrophils % (auto) 71.5 % (37.0-80.0); Nucleated Red Blood Cells % 0.2 %; Red Blood Cells 4.14 10^6/uL (4.5-5.90); Red Cell Distribution Width 16.8 % (11.8-14.3)
[2023-10-03 06:21] LABS: Alanine Aminotransferase 15 U/L (7-40); Albumin 4.1 g/dL (3.2-4.8); Alkaline Phosphatase 86 U/L (46-116); Aspartate Aminotransferase 9 U/L (13-40); BUN/Creatinine Ratio 21.7 (10.0-20.0); Bilirubin, Total 0.3 mg/dL (0.2-1.0); Blood Urea Nitrogen 13 mg/dL (9-23); Calcium 9.1 mg/dL (8.5-10.1); Chloride 96 mmol/L (98-107); Glucose 146 mg/dL (74-106); Sodium 142 mmol/L (136-145); Total Protein 7.1 g/dL (5.7-8.2)
[2023-10-03 06:30] LABS: Anion Gap 5.99999 (5-15); Carbon Dioxide > 40 mmol/L (20-30)
[2023-10-03] MEDS: ACCU-CHEK COMFORT CURVE STRIP VI SCH ×4 (06:55→21:54)
[2023-10-03] MEDS: InsuLIN REG 1unit/0.01ml Soln (100units/ml) SC SCH ×4 (06:58→22:13)
[2023-10-03] MEDS ORDERED: FUROSEMIDE 20 MG/2 ML VIAL IV SCH (10:00)
[2023-10-03] MEDS ORDERED: ENOXAPARIN SOD 40 MG/0.4 ML SYRINGE SC SCH (10:00)
[2023-10-03] MEDS: APIXABAN 5 MG TAB PO SCH ×2 (10:59→21:55)
[2023-10-03] MEDS: METOPROLOL TARTRATE 50 MG TAB PO SCH ×2 (11:06→21:56)
[2023-10-03] MEDS ORDERED: FUROSEMIDE 40 MG/4 ML VIAL IV ONE (14:45)
[2023-10-03] MEDS ORDERED: LORazepam 2MG/ML-1ML VIAL ONE (15:35)
[2023-10-03] MEDS ORDERED: MAGNESIUM SULFATE 1GM/100ML 100 ML IV ONE ×2 (17:00→17:58)
[2023-10-03] MEDS ORDERED: FUROSEMIDE 40 MG/4 ML VIAL ONE (17:58)
[2023-10-03] MEDS ORDERED: IPRATROPIUM BROM 0.5 MG/2.5ML INH SOL NEB SCH (18:00)
[2023-10-03 18:36] LABS: Respiratory Syncytial Virus Ag Negative
[2023-10-03 18:37] LABS: COVID19 ANTIGEN SOFIA FIA NEGATIVE (NEGATIVE)
[2023-10-03 18:38] LABS: Rapid Influenza A Negative (Negative); Rapid Influenza B Negative (Negative)
[2023-10-03] MEDS ORDERED: TETANUS-DIPTH-ACEL PERTUSSIS 0.5ML SYR Tdap IM ONE (18:47)
[2023-10-03] MEDS ORDERED: ONDANSETRON HCL 4 MG/2 ML VIAL ONE (21:51)
[2023-10-03] MEDS: FAMOTIDINE 20 MG TAB PO SCH (21:55)
[2023-10-03] MEDS: ATORVASTATIN 20 MG TAB PO SCH (21:55)
[2023-10-04] VITALS (11 sets, daily range): BP systolic 110–127; BP diastolic 58–71; PULSE 71–91; RESP 18–20; TEMP 97.7–98.4; O2SAT 92–100
[2023-10-04 05:44] LABS: Alanine Aminotransferase 11 U/L (7-40); Albumin 4.2 g/dL (3.2-4.8); Alkaline Phosphatase 85 U/L (46-116); Aspartate Aminotransferase < 8 U/L (13-40); BUN/Creatinine Ratio 17.6 (10.0-20.0); Blood Urea Nitrogen 12 mg/dL (9-23); Calcium 9.2 mg/dL (8.7-10.4); Chloride 94 mmol/L (98-107); Glucose 164 mg/dL (74-106); Magnesium 2.4 mg/dL (1.6-2.6); Potassium 4.3 mmol/L (3.5-5.1); Sodium 140 mmol/L (136-145)
[2023-10-04 05:45] LABS: Bilirubin, Total 0.4 mg/dL (0.2-1.0); Total Protein 7.4 g/dL (5.7-8.2)
[2023-10-04 05:46] LABS: Basophils # (auto) 0 10 ^3/uL (0-0.2); Basophils % (auto) 0.5 % (0.0-2.0); Eosinophils # (auto) 0.2 10 ^3/uL (0-0.8); Hemoglobin 10.4 g/dL (13.5-17.5); Monocytes # (auto) 0.6 10 ^3/uL (0-1.3)
[2023-10-04 05:49] LABS: Eosinophils % (auto) 2.2 % (0.0-7.0); Hematocrit 35.2 % (41.0-53.0); Lymphocytes # (auto) 1.4 10 ^3/uL (0.4-5.4); Lymphocytes % (auto) 17.8 % (10.0-50.0); Mean Corpuscular Hemoglobin 24.5 pg (28.0-32.0); Mean Corpuscular Hgb Conc. 29.7 g/dL (32.0-36.0); Mean Corpuscular Volume 82.4 fL (80.0-100.0); Monocytes % (auto) 7.3 % (0.0-12.0); Neutrophils # (auto) 5.8 10 ^3/uL (1.6-8.6); Neutrophils % (auto) 72.2 % (37.0-80.0); Nucleated Red Blood Cells % 0.3 %; Red Blood Cells 4.27 10^6/uL (4.5-5.90); Red Cell Distribution Width 17.2 % (11.8-14.3)
[2023-10-04 06:09] LABS: % Iron Saturation 8.2 % (20-55)
[2023-10-04 06:28] LABS: Anion Gap 5.99999 (5-15)
[2023-10-04 06:31] LABS: Carbon Dioxide > 40 mmol/L (20-30)
[2023-10-04] MEDS: INSULIN LANTUS (GLARGINE) 1 /0.01ml (100units/ml) SC SCH (07:00)
[2023-10-04] MEDS: VALPROIC ACID 250 MG/5 ML ORAL SOLN PO SCH ×3 (07:01→22:52)
[2023-10-04] MEDS: cloNIDine HCL 0.1 MG TAB PO SCH ×3 (07:02→23:17)
[2023-10-04] MEDS: ACCU-CHEK COMFORT CURVE STRIP VI SCH ×4 (07:02→22:52)
[2023-10-04] MEDS: InsuLIN REG 1unit/0.01ml Soln (100units/ml) SC SCH ×4 (07:06→22:54)
[2023-10-04] MEDS ORDERED: INSULIN LANTUS (GLARGINE) 1 /0.01ml (100units/ml) SC ONE (08:04)
[2023-10-04] MEDS ORDERED: levoFLOXacin 750MG 150 ML IV SCH (10:00)
[2023-10-04] MEDS ORDERED: FUROSEMIDE 20 MG/2 ML VIAL IV SCH (10:00)
[2023-10-04] MEDS ORDERED: LEVOFLOXACIN 250 MG IV ONE (11:14)
[2023-10-04] MEDS ORDERED: FUROSEMIDE 40 MG/4 ML VIAL ONE (11:18)
[2023-10-04] MEDS: ALBUTEROL SULF 2.5 MG/0.5ML(0.5%) NEB SOLN NEB PRN ×2 (11:24→20:20)
[2023-10-04] MEDS: APIXABAN 5 MG TAB PO SCH ×2 (11:28→22:52)
[2023-10-04] MEDS: METOPROLOL TARTRATE 50 MG TAB PO SCH ×2 (11:28→23:18)
[2023-10-04] MEDS ORDERED: levoFLOXacin 750MG 150 ML IV ONE (11:46)
[2023-10-04] MEDS: FUROSEMIDE 40 MG/4 ML VIAL IV SCH (12:00)
[2023-10-04] MEDS: MEROPENEM 1GM IVPB 100 ML IV SCH ×2 (14:00→21:14)
[2023-10-04] MEDS: IPRATROPIUM BROM 0.5 MG/2.5ML INH SOL NEB PRN (20:20)
[2023-10-04] MEDS: FAMOTIDINE 20 MG TAB PO SCH (22:51)
[2023-10-04] MEDS: ATORVASTATIN 20 MG TAB PO SCH (22:51)
[2023-10-05] VITALS (14 sets, daily range): BP systolic 105–124; BP diastolic 59–71; PULSE 66–87; RESP 17–22; TEMP 97.6–98.2; O2SAT 94–100
[2023-10-05] MEDS: MEROPENEM 1GM IVPB 100 ML IV SCH ×5 (05:31→18:47)
[2023-10-05] MEDS: ACCU-CHEK COMFORT CURVE STRIP VI SCH ×4 (05:31→22:07)
[2023-10-05] MEDS: VALPROIC ACID 250 MG/5 ML ORAL SOLN PO SCH ×3 (06:23→22:07)
[2023-10-05] MEDS: cloNIDine HCL 0.1 MG TAB PO SCH ×3 (06:24→21:05)
[2023-10-05 06:39] LABS: Eosinophils # (auto) 0.2 10 ^3/uL (0-0.8)
[2023-10-05 06:41] LABS: Basophils # (auto) 0.1 10 ^3/uL (0-0.2); Basophils % (auto) 0.9 % (0.0-2.0); Hematocrit 37.4 % (41.0-53.0); Hemoglobin 11.1 g/dL (13.5-17.5); Lymphocytes % (auto) 23.5 % (10.0-50.0); Mean Corpuscular Hemoglobin 25.1 pg (28.0-32.0); Mean Corpuscular Hgb Conc. 29.6 g/dL (32.0-36.0); Mean Corpuscular Volume 84.8 fL (80.0-100.0); Monocytes # (auto) 0.7 10 ^3/uL (0-1.3); Monocytes % (auto) 8.2 % (0.0-12.0); Neutrophils # (auto) 5.5 10 ^3/uL (1.6-8.6); Neutrophils % (auto) 65.4 % (37.0-80.0); Nucleated Red Blood Cells % 0.6 %; Red Blood Cells 4.41 10^6/uL (4.5-5.90); Red Cell Distribution Width 17.5 % (11.8-14.3); White Blood Cell 8.5 10^3/uL (4.4-10.8)
[2023-10-05] MEDS: InsuLIN REG 1unit/0.01ml Soln (100units/ml) SC SCH ×3 (06:58→18:22)
[2023-10-05] MEDS: INSULIN LANTUS (GLARGINE) 1 /0.01ml (100units/ml) SC SCH (06:58)
[2023-10-05 08:26] LABS: Alanine Aminotransferase 13 U/L (7-40); Albumin 4.3 g/dL (3.2-4.8); Alkaline Phosphatase 87 U/L (46-116); Aspartate Aminotransferase 9 U/L (13-40); BUN/Creatinine Ratio 28.8 (10.0-20.0); Bilirubin, Total 0.4 mg/dL (0.2-1.0); Blood Urea Nitrogen 19 mg/dL (9-23); Calcium 9.5 mg/dL (8.5-10.1); Chloride 96 mmol/L (98-107); Glucose 168 mg/dL (74-106); Potassium 4.1 mmol/L (3.5-5.1); Sodium 141 mmol/L (136-145); Total Protein 7.5 g/dL (5.7-8.2)
[2023-10-05 08:29] LABS: Anion Gap 4.99999 (5-15)
[2023-10-05] MEDS: ACETAMINOPHEN 325 MG TAB PO PRN (08:29)
[2023-10-05 08:39] LABS: Carbon Dioxide > 40 mmol/L (20-30)
[2023-10-05] MEDS: MUPIROCIN 2% OINT 15gm or 22gm TOP SCH ×2 (10:00→22:13)
[2023-10-05] MEDS: APIXABAN 5 MG TAB PO SCH ×2 (11:36→21:05)
[2023-10-05] MEDS: METOPROLOL TARTRATE 50 MG TAB PO SCH ×2 (11:37→21:04)
[2023-10-05] MEDS: FUROSEMIDE 40 MG/4 ML VIAL IV SCH (11:40)
[2023-10-05] MEDS: IPRATROPIUM BROM 0.5 MG/2.5ML INH SOL NEB PRN ×2 (13:43→18:10)
[2023-10-05] MEDS: ALBUTEROL SULF 2.5 MG/0.5ML(0.5%) NEB SOLN NEB PRN ×2 (13:44→18:09)
[2023-10-05] MEDS ORDERED: DEXTROSE (50%) 50ML SYRG IV PRN (20:00)
[2023-10-05] MEDS: ATORVASTATIN 20 MG TAB PO SCH (21:05)
[2023-10-05] MEDS: FAMOTIDINE 20 MG TAB PO SCH (21:05)
[2023-10-05] MEDS: HYDROcodone-ACET 5/325MG TAB PO PRN (21:05)
[2023-10-05] MEDS ORDERED: InsuLIN REG 1unit/0.01ml Soln (100units/ml) SC SCH (22:00)
[2023-10-06] VITALS (9 sets, daily range): BP systolic 98–114; BP diastolic 50–57; PULSE 67–78; RESP 18–22; TEMP 97.5–98.1; O2SAT 96–99
[2023-10-06] MEDS: VALPROIC ACID 250 MG/5 ML ORAL SOLN PO SCH ×2 (05:17→14:43)
[2023-10-06] MEDS: cloNIDine HCL 0.1 MG TAB PO SCH ×2 (05:17→14:00)
[2023-10-06] MEDS: ACCU-CHEK COMFORT CURVE STRIP VI SCH ×3 (05:58→17:00)
[2023-10-06] MEDS: INSULIN LANTUS (GLARGINE) 1 /0.01ml (100units/ml) SC SCH (06:01)
[2023-10-06 06:49] LABS: Chloride 98 mmol/L (98-107); Potassium 4.1 mmol/L (3.5-5.1); Sodium 141 mmol/L (136-145)
[2023-10-06 06:55] LABS: Blood Urea Nitrogen 18 mg/dL (9-23); Glucose 156 mg/dL (74-106)
[2023-10-06 06:56] LABS: Magnesium 2.3 mg/dL (1.6-2.6)
[2023-10-06] MEDS ORDERED: InsuLIN REG 1unit/0.01ml Soln (100units/ml) SC SCH ×2 (07:00→22:00)
[2023-10-06 07:20] LABS: Eosinophils # (auto) 0.1 10 ^3/uL (0-0.8); Lymphocytes # (auto) 1.6 10 ^3/uL (0.4-5.4); Monocytes # (auto) 0.6 10 ^3/uL (0-1.3)
[2023-10-06 07:21] LABS: Anion Gap 2.99999 (5-15); Carbon Dioxide > 40 mmol/L (20-30)
[2023-10-06 07:24] LABS: Basophils # (auto) 0.1 10 ^3/uL (0-0.2); Basophils % (auto) 0.6 % (0.0-2.0); Eosinophils % (auto) 1.5 % (0.0-7.0); Hematocrit 34.4 % (41.0-53.0); Hemoglobin 10.6 g/dL (13.5-17.5); Lymphocytes % (auto) 20.4 % (10.0-50.0); Mean Corpuscular Hemoglobin 25.1 pg (28.0-32.0); Mean Corpuscular Hgb Conc. 30.7 g/dL (32.0-36.0); Mean Corpuscular Volume 81.8 fL (80.0-100.0); Monocytes % (auto) 7.4 % (0.0-12.0); Neutrophils # (auto) 5.6 10 ^3/uL (1.6-8.6); Neutrophils % (auto) 70.1 % (37.0-80.0); Nucleated Red Blood Cells % 0.1 %; Red Cell Distribution Width 16.7 % (11.8-14.3)
[2023-10-06] MEDS ORDERED: DEXTROSE (50%) 50ML SYRG IV PRN (07:30)
[2023-10-06 09:28] LABS: BUN/Creatinine Ratio 30.5 (10.0-20.0)
[2023-10-06] MEDS: IPRATROPIUM BROM 0.5 MG/2.5ML INH SOL NEB PRN (09:40)
[2023-10-06] MEDS: ALBUTEROL SULF 2.5 MG/0.5ML(0.5%) NEB SOLN NEB PRN (09:40)
[2023-10-06] MEDS: MUPIROCIN 2% OINT 15gm or 22gm TOP SCH (10:00)
[2023-10-06 10:24] LABS: Folate (Folic Acid) 6.75 ng/mL (>5.38)
[2023-10-06] MEDS: FUROSEMIDE 40 MG/4 ML VIAL IV SCH (11:05)
[2023-10-06] MEDS: METOPROLOL TARTRATE 50 MG TAB PO SCH (11:06)
[2023-10-06] MEDS: APIXABAN 5 MG TAB PO SCH (11:06)
[2023-10-06] MEDS: HYDROcodone-ACET 5/325MG TAB PO PRN (11:27)
[2023-10-06] MEDS: InsuLIN REG 1unit/0.01ml Soln (100units/ml) SC SCH ×2 (13:33→17:00)
[2023-10-06] MEDS ORDERED: MEROPENEM 1GM IVPB 100 ML IV SCH (14:00)
[2023-10-06] MEDS ORDERED: MEROPENEM 1GM IVPB 100 ML IV ONE (14:00)
[2023-10-06] MEDS ORDERED: FAMOTIDINE 20 MG TAB PO SCH (22:00)
[2023-10-07] MEDS ORDERED: INSULIN LANTUS (GLARGINE) 1 /0.01ml (100units/ml) SC SCH (07:00)
== END 2023-10-06 21:06 | disposition home health service (06) | DRG 137 ==
LOC: ER 05:41 → EDBD 05:41 → TELE 10:35 → TELE-CENTR 10-03 16:06
PROVIDERS: ADMIT Internal Medicine Pulmonary Disease; ATTEND Internal Medicine Pulmonary Disease
PROC: 05HD33Z Insertion of Infusion Device into Right Cephalic Vein, Percutaneous Approach (ICD-10-PCS; principal; 2023-10-06)
PROC: B54MZZA Ultrasonography of Right Upper Extremity Veins, Guidance (ICD-10-PCS; 2023-10-06)
DX: J15.69 Pneumonia due to other Gram-negative bacteria (principal); J96.21 Acute and chronic respiratory failure with hypoxia; I50.33 Acute on chronic diastolic (congestive) heart failure; E66.01 Morbid (severe) obesity due to excess calories; E11.9 Type 2 diabetes mellitus without complications; B95.62 Methicillin resistant Staphylococcus aureus infection as the cause of diseases classified elsewhere; J44.0 Chronic obstructive pulmonary disease with (acute) lower respiratory infection; Z20.822 Contact with and (suspected) exposure to COVID-19; J44.1 Chronic obstructive pulmonary disease with (acute) exacerbation; I11.0 Hypertensive heart disease with heart failure; E78.5 Hyperlipidemia, unspecified; G47.33 Obstructive sleep apnea (adult) (pediatric); I48.91 Unspecified atrial fibrillation; L60.0 Ingrowing nail; L30.4 Erythema intertrigo; J96.22 Acute and chronic respiratory failure with hypercapnia; Z68.42 Body mass index [BMI] 45.0-49.9, adult; Z91.199 Patient's noncompliance with other medical treatment and regimen due to unspecified reason
CPT/HCPCS: 36415; 36600; 71045; 71250; 76604; 80048; 80053; 80061; 81001; 82607; 82746; 82805; 82962; 83540; 83550; 83735; 83880; 84443; 84484; 85025; 85379; 85610; 85730; 87070; 87077; 87186; 87205; 87426; 87804; 87807; 90715; 93005; 94002; 94640; 96374; 96375; 99291; G0378; J1815; J1956; J2185; J2405

== ENCOUNTER 2024-02-09 06:36 | Inpatient (IN) | payer MEDICAID ==
[~2024-02-09] VITALS: Ht 182.9 cm; Wt 162.3 kg
[~2024-02-09 06:36] MED LIST changes: -ARIP1TAB7 PO; +ARIP20TA4 PO; -PRED20TA2 PO
[2024-02-09 07:38] LABS: Chloride 99 mmol/L (98-107); Potassium 4.4 mmol/L (3.5-5.1); Sodium 140 mmol/L (136-145)
[2024-02-09 07:39] LABS: Anion Gap 8 (5-15); Carbon Dioxide 33 mmol/L (20-30)
[2024-02-09 07:40] LABS: Calcium 9.1 mg/dL (8.5-10.1)
[2024-02-09 07:44] LABS: Glucose 182 mg/dL (74-106)
[2024-02-09 07:45] LABS: BUN/Creatinine Ratio 18.4 (10.0-20.0); Blood Urea Nitrogen 14 mg/dL (9-23)
[2024-02-09 08:56] LABS: Basophils # (auto) 0 10 ^3/uL (0-0.2); Eosinophils # (auto) 0.2 10 ^3/uL (0-0.8); Monocytes # (auto) 0.5 10 ^3/uL (0-1.3); Neutrophils # (auto) 5.1 10 ^3/uL (1.6-8.6); Red Blood Cells 4.68 10^6/uL (4.5-5.90); White Blood Cell 7.1 10^3/uL (4.4-10.8)
[2024-02-09 08:57] LABS: Basophils % (auto) 0.4 % (0.0-2.0); Eosinophils % (auto) 2.9 % (0.0-7.0); Hematocrit 37.6 % (41.0-53.0); Hemoglobin 11.3 g/dL (13.5-17.5); Lymphocytes # (auto) 1.2 10 ^3/uL (0.4-5.4); Lymphocytes % (auto) 17.3 % (10.0-50.0); Mean Corpuscular Hemoglobin 24.1 pg (28.0-32.0); Mean Corpuscular Hgb Conc. 29.9 g/dL (32.0-36.0); Mean Corpuscular Volume 80.4 fL (80.0-100.0); Monocytes % (auto) 7.4 % (0.0-12.0); Nucleated Red Blood Cells % 0.5 %; Red Cell Distribution Width 17.3 % (11.8-14.3)
[2024-02-09 09:34] LABS: Platelet Estimate Adequate
[2024-02-09 09:36] LABS: Hypochromia Moderate; Stomatocytes Moderate
[2024-02-09 10:20] VITALS: PULSE 91; RESP 18; O2SAT 84
[2024-02-09] MEDS ORDERED: ALBUTEROL SULF 2.5 MG/0.5ML(0.5%) NEB SOLN NEB PRN (11:30)
[2024-02-09] MEDS ORDERED: NITROGLYCERIN 0.4 MG SL TAB SL PRN (11:30)
[2024-02-09] MEDS ORDERED: ACETAMINOPHEN 325 MG TAB PO PRN (11:30)
[2024-02-09] MEDS ORDERED: MORPHINE SULFATE INJ 2 MG/ml SYRG IV PRN (11:30)
[2024-02-09] MEDS ORDERED: DEXTROSE (50%) 50ML SYRG IV PRN (11:30)
[2024-02-09] MEDS ORDERED: LORazepam 0.5 MG TAB PO PRN (11:45)
[2024-02-09 12:13] LABS: Urine Bacteria None Seen /hpf (None Seen)
[2024-02-09] MEDS: ACCU-CHEK COMFORT CURVE STRIP VI SCH (12:15)
[2024-02-09] MEDS: InsuLIN REG 1unit/0.01ml Soln (100units/ml) SC SCH (12:18)
[2024-02-09 13:14] LABS: Urine Blood TRACE /uL (Negative); Urine Clarity Clear (Clear); Urine Color Light-Yellow (Yellow); Urine Mucus FEW (None Seen); Urine Protein, UAD Negative (Negative); Urine Specific Gravity 1.029 (1.001-1.035); Urine Urobilinogen Normal (Negative); Urine WBC 1 /hpf (0 - 3)
[2024-02-09 13:55] LABS: Triglycerides 173 mg/dL (< 150)
[2024-02-09 13:56] LABS: LDL Cholesterol 65 mg/dL (< 100)
[2024-02-09 13:57] LABS: Cholesterol 125 mg/dL (< 200); HDL Cholesterol 33 mg/dL (40-59)
[2024-02-09] MEDS: cloNIDine HCL 0.1 MG TAB PO SCH (14:00)
[2024-02-09] MEDS: VALPROIC ACID 250 MG/5 ML ORAL SOLN PO SCH (14:00)
[2024-02-09 18:30] VITALS: PULSE 81; RESP 23; O2SAT 94
[2024-02-09] MEDS: IPRATROPIUM BROM 0.5 MG/2.5ML INH SOL NEB SCH (18:30)
[2024-02-09] MEDS: ALBUTEROL SULF 2.5 MG/0.5ML(0.5%) NEB SOLN NEB SCH (18:31)
[2024-02-09 18:38] VITALS: PULSE 77; RESP 20; O2SAT 94
[2024-02-09 21:55] VITALS: PULSE 86; RESP 18; O2SAT 90
[2024-02-09 22:05] VITALS: PULSE 86; RESP 18; O2SAT 94
[2024-02-09] MEDS: FAMOTIDINE 20 MG TAB PO SCH (22:33)
[2024-02-09] MEDS: ATORVASTATIN 20 MG TAB PO SCH (22:33)
[2024-02-09] MEDS: METOPROLOL TARTRATE 50 MG TAB PO SCH (22:33)
[2024-02-09] MEDS: APIXABAN 5 MG TAB PO SCH (22:34)
[2024-02-10] VITALS (17 sets, daily range): BP systolic 128–147; BP diastolic 71–80; PULSE 78–91; RESP 13–23; TEMP 98–98.7; O2SAT 90–97
[2024-02-10 04:36] LABS: Basophils # (auto) 0 10 ^3/uL (0-0.2); Basophils % (auto) 0.5 % (0.0-2.0); Eosinophils # (auto) 0.2 10 ^3/uL (0-0.8); Eosinophils % (auto) 2.4 % (0.0-7.0); Hematocrit 36.6 % (41.0-53.0); Lymphocytes # (auto) 1.2 10 ^3/uL (0.4-5.4); Lymphocytes % (auto) 17.1 % (10.0-50.0); Mean Corpuscular Hemoglobin 24.4 pg (28.0-32.0); Mean Corpuscular Hgb Conc. 30.1 g/dL (32.0-36.0); Mean Corpuscular Volume 81.1 fL (80.0-100.0); Monocytes # (auto) 0.5 10 ^3/uL (0-1.3); Monocytes % (auto) 7.4 % (0.0-12.0); Neutrophils # (auto) 5.2 10 ^3/uL (1.6-8.6); Neutrophils % (auto) 72.6 % (37.0-80.0); Nucleated Red Blood Cells % 0.3 %; Red Blood Cells 4.51 10^6/uL (4.5-5.90); Red Cell Distribution Width 17.2 % (11.8-14.3); White Blood Cell 7.2 10^3/uL (4.4-10.8)
[2024-02-10 05:01] LABS: Alanine Aminotransferase 28 U/L (7-40); Alkaline Phosphatase 94 U/L (46-116); Anion Gap 5 (5-15); Aspartate Aminotransferase 23 U/L (13-40); BUN/Creatinine Ratio 17.6 (10.0-20.0); Blood Urea Nitrogen 12 mg/dL (9-23); Calcium 9.3 mg/dL (8.7-10.4); Carbon Dioxide 35 mmol/L (20-30); Chloride 100 mmol/L (98-107); Glucose 198 mg/dL (74-106); Potassium 4.1 mmol/L (3.5-5.1); Sodium 140 mmol/L (136-145)
[2024-02-10 05:02] LABS: Albumin 3.9 g/dL (3.2-4.8); Bilirubin, Total 0.3 mg/dL (0.2-1.0); Total Protein 7.4 g/dL (5.7-8.2)
[2024-02-10 09:54] LABS: Base Excess 11.1 mmol/L (-2.0-2.0)
[2024-02-10] MEDS ORDERED: CLON0.2T PO (15:40)
[2024-02-10] MEDS ORDERED: VALP1CAP4 PO (15:40)
[2024-02-10] MEDS ORDERED: GABA-1308 PO (15:43)
[2024-02-11] VITALS (7 sets, daily range): BP systolic 111–130; BP diastolic 78–85; PULSE 71–90; RESP 18–20; TEMP 36.7; O2SAT 92–100
[2024-02-11 07:51] LABS: Basophils # (auto) 0 10 ^3/uL (0-0.2); Eosinophils # (auto) 0.2 10 ^3/uL (0-0.8); Monocytes # (auto) 0.6 10 ^3/uL (0-1.3); Nucleated Red Blood Cells % 0.1 %
[2024-02-11 08:01] LABS: Anion Gap 5 (5-15); Carbon Dioxide 36 mmol/L (20-30); Chloride 98 mmol/L (98-107); Potassium 4.2 mmol/L (3.5-5.1); Sodium 139 mmol/L (136-145)
[2024-02-11 08:02] LABS: Calcium 9.3 mg/dL (8.5-10.1)
[2024-02-11 08:07] LABS: BUN/Creatinine Ratio 14.3 (10.0-20.0); Blood Urea Nitrogen 11 mg/dL (9-23); Glucose 207 mg/dL (74-106)
[2024-02-11 08:09] LABS: Basophils % (auto) 0.5 % (0.0-2.0); Hematocrit 37.6 % (41.0-53.0); Hemoglobin 11.6 g/dL (13.5-17.5); Lymphocytes # (auto) 1.4 10 ^3/uL (0.4-5.4); Mean Corpuscular Hemoglobin 24.9 pg (28.0-32.0); Mean Corpuscular Hgb Conc. 30.9 g/dL (32.0-36.0); Mean Corpuscular Volume 80.5 fL (80.0-100.0); Monocytes % (auto) 7.3 % (0.0-12.0); Neutrophils # (auto) 5.5 10 ^3/uL (1.6-8.6); Neutrophils % (auto) 72.2 % (37.0-80.0); Red Blood Cells 4.66 10^6/uL (4.5-5.90); Red Cell Distribution Width 17.2 % (11.8-14.3); White Blood Cell 7.6 10^3/uL (4.4-10.8)
== END 2024-02-11 11:00 | disposition home or self-care (01) | DRG 133 ==
LOC: EDUNIT# 06:36 → EDBD 06:36 → ER 06:36 → TELE 11:33 → TELE-CENTR 02-10 17:26
PROVIDERS: ADMIT Nurse Practitioner Family; ATTEND Internal Medicine Pulmonary Disease
PROC: 0B21XFZ Change Tracheostomy Device in Trachea, External Approach (ICD-10-PCS; principal; 2024-02-09)
DX: J96.01 Acute respiratory failure with hypoxia (principal); G82.50 Quadriplegia, unspecified; E87.29 Other acidosis; I50.32 Chronic diastolic (congestive) heart failure; E66.2 Morbid (severe) obesity with alveolar hypoventilation; I11.0 Hypertensive heart disease with heart failure; I48.0 Paroxysmal atrial fibrillation; E11.9 Type 2 diabetes mellitus without complications; J98.4 Other disorders of lung; J96.02 Acute respiratory failure with hypercapnia; J44.9 Chronic obstructive pulmonary disease, unspecified; Z93.0 Tracheostomy status; Z79.01 Long term (current) use of anticoagulants; Z68.42 Body mass index [BMI] 45.0-49.9, adult; Z74.01 Bed confinement status
CPT/HCPCS: 36415; 36600; 71045; 71250; 80048; 80053; 80061; 81001; 82805; 82962; 83036; 83880; 84443; 85025; 85379; 93306; 93970; 94640; G0378; J1815

== ENCOUNTER 2024-05-14 08:58 | Emergency (ER) | payer MEDICAID, OTHER ==
[~2024-05-14] VITALS: Ht 162.6 cm; Wt 136.0 kg
[~2024-05-14 08:58] MED LIST changes: -CLON0.1T PO; +CLON0.2T PO; +GABA-1308 PO; +VALP1CAP4 PO; -VALP250S19 PO
[2024-05-14 09:10] VITALS: PULSE 89; RESP 20; O2SAT 97
[2024-05-14 13:40] VITALS: BP 110/72; PULSE 82; RESP 18; TEMP 98.4; O2SAT 98
== END 2024-05-14 13:41 | disposition home or self-care (01) ==
LOC: EDBD 08:58 → EDUNIT# 09:03 → ER 09:03
DX: J95.03 Malfunction of tracheostomy stoma (principal); I11.0 Hypertensive heart disease with heart failure; I50.9 Heart failure, unspecified; J44.9 Chronic obstructive pulmonary disease, unspecified; E11.9 Type 2 diabetes mellitus without complications; Z88.6 Allergy status to analgesic agent

== ENCOUNTER 2024-08-26 08:56 | Inpatient (IN) | payer MEDICAID ==
[~2024-08-26] VITALS: Ht 182.9 cm; Wt 168.0 kg
[2024-08-26 09:10] VITALS: PULSE 80; RESP 12; O2SAT 96
--- NOTE | 2024-08-26 09:19 | ED.PDOC ---
History of Present Illness HPI Comments 39y M who presents to the ED via EMS for chief complaint of tube replacement. Pt states he had tracheostomy tube placed 3 months prior and states he got it placed at [place] 3 months prior. Pt states he needs tracheostomy tube replaced every 3 months and states he had home health but states they told him he needs to come to the ED replacement to tube. Pt states he had tube placed due to large tongue cutting off 02 supply to his lungs. Pt otherwise denies chest pain, shortness of breath, cough, chills, headache, dizziness, nausea, or vomiting. Chief Complaint: Tube Replacement Time Seen by MD: 09:16 Primary Care Provider: YOHAN Reviewed Notes: [employer]er Notes, Medications, Allergies Allergies: Coded Allergies: Hydromorphone (Verified Allergy, Unknown, 02/11/24) Home Meds Active Scripts Atorvastatin Calcium (ATORVASTATIN CALCIUM) 20 Mg Tab, 40 MG PO HS for 30 Days, #30 TAB Prov:ARELY MCINTYRE MD 09/02/23 Furosemide (Lasix) 20 Mg Tb, 1 TAB PO DAILY, #30 TAB 5 Refills Prov:ARELY MCINTYRE MD 09/02/23 Reported Medications Gabapentin (Gabapentin) 100 Mg Cap, 1 CAP PO DAILY 02/10/24 Valproic Acid (Valproic Acid) 250 Mg Cap, 1 TAB PO TID 02/10/24 Clonidine Hydrochloride (Clonidine Hcl) 0.2 Mg Tab, 1 TAB PO TID 02/10/24 Metoprolol Tartrate (Metoprolol Tartrate) 25 Mg Tab, 100 MG PO BID for 30 Days, MG 08/31/23 Aripiprazole (Abilify) 20 Mg Tab, 30 MG PO DAILY, TAB 08/30/23 Insulin Lispro (Human) (Humalog) 100 Unit/Ml Inj, 100 UNIT SC, INJ 08/30/23 Famotidine (PEPCID TABLET) 20 Mg Tb, 1 TAB PO HS, #60 TAB 5 Refills 08/30/23 Lorazepam (ATIVAN TABLET) 0.5 Mg Tb, 1 TAB PO Q6HP PRN for ANXIETY, #90 TAB 08/30/23 Apixaban Base (ELIQUIS) 5 Mg Tab, 5 MG PO BID, TAB 08/30/23 Metformin Hydrochloride (Metformin Hcl) 500 Mg Tab, 1000 MG PO BID for 30 Days, MG 08/30/23 Information Source: Patient Mode of Arrival: EMS Past Medical History PAST MEDICAL HISTORY: AFIB, Asthma, CHF, COPD, DM, HTN Surgical History (Other): tracheostomy tube placement Family History Family History: Family hx of Cancer Social History Smoker: Non-Smoker Alcohol: Denies ETOH Use Drugs: Denies Drug Use Lives In: Home Constitutional: denies: chills, diaphoresis, fatigue, fever, malaise, sweats, weakness, others EENTM: denies: blurred vision, double vision, ear bleeding, ear discharge, ear drainage, ear pain, ear ringing, eye pain, eye redness, hearing loss, mouth pain, mouth swelling, nasal discharge, nose bleeding, nose congestion, nose pain, photophobia, tearing, throat pain, throat swelling, voice changes, others Respiratory: denies: cough, hemoptysis, orthopnea, SOB at rest, shortness of breath, SOB with excertion, stridor, wheezing, others Cardiovascular: denies: chest pain, dizzy spells, diaphoresis, Dyspnea on exertion, edema, irregular heart beat, left arm pain, lightheadedness, palpitations, PND, syncope, others Gastrointestinal: denies: abdomen distended, abdominal pain, blood streaked bowels, constipated, diarrhea, dysphagia, difficulty swallowing, hematemesis, melena, nausea, poor appetite, poor fluid intake, rectal bleeding, rectal pain, vomiting, others Genitourinary: denies: burning, dysuria, flank pain, frequency, hematuria, incontinence, penile discharge, penile sore, pain, testicle pain, testicle swelling, urgency, others Neurological: denies: dizziness, fainting, headache, left sided numbness, left sided weakness, numbness, paresthesia, pre-existing deficit, right sided numbness, right sided weakness, seizure, speech problems, tingling, tremors, weakness, others Musculoskeletal: denies: back pain, gout, joint pain, joint swelling, muscle pain, muscle stiffness, neck pain, others Integumetry: denies: bruises, change in color, change in hair/nails, dryness, laceration, lesions, lumps, rash, wounds, others Allergic/Immunocompromised: denies: Difficulty Healing, Frequent Infections, Hives, Itching, others Hematologic/Lymphatic: denies: anemia, blood clots, easy bleeding, easy bruising, swollen glands, others Endocrine: denies: excessive hunger, excessive sweating, excessive thirst, excessive urination, flushing, intolerance to cold, intolerance to heat, unexplained weight gain, unexplained weight loss, others Psychiatric: denies: anxiety, bipolar disorder, depression, hopeless, panic disorder, schizophrenia, sleepless, suicidal, others All Other Systems: Reviewed and Negative Physical Exam General Appearance: Moderate Distress, Obese HEENT: Other (Trach collar in place) Neck: Full Range of Motion, Non-Tender, Normal, Normal Inspection Respiratory: Chest Non-Tender, Lungs Clear, No Accessory Muscle Use, No Respiratory Distress, Normal Breath Sounds Cardiovascular: No Edema, No JVD, No Murmur, No Gallop, Normal Peripheral Pulses, Regular Rate/Rhythm Breast Exam: Deferred Gastrointestinal: No Organomegaly, Non Tender, No Pulsatile Mass, Normal Bowel Sounds, Soft Genitalia: Deferred Pelvic: Deferred Rectal: Deferred Extremities: No calf tenderness, Normal capillary refill, Normal inspection, Normal range of motion, Non-tender, No pedal edema Musculoskeletal : Apperance: Normal Neurologic: Alert Cerebellar Function: NOT DONE Reflexes: NOT DONE Skin: Dry, Normal Color, Warm Peripheral Pulses: 3+ Radial (R), 3+ Radial (L) Lymphatic: No Adenopathy Was a procedure done? Was a procedure done?: No Differential Dx Considerations may include: tracheostomy tube care, tracheostomy tube placement, tracheostomy tube malfunction X-Ray, Labs, Meds, VS Vital Signs Date Time Temp Pulse Resp B/P (MAP) Pulse Ox O2 Delivery O2 Flow Rate FiO2 08/26/24 12:05 98.0 96 15 131/65 (87) 96 98.0 08/26/24 09:10 80 12 96 Trach Collar 4 N/A 08/26/24 09:10 98.0 80 12 127/68 (87) 96 98.0 08/26/24 09:03 97.9 93 16 118/74 (89) 94 Lab Test 08/26/24 09:13 Range/Units White Blood Count 8.5 4.4-10.8 10^3/uL Red Blood Count 4.99 4.5-5.90 10^6/uL Hemoglobin 12.9 L 13.5-17.5 g/dL Hematocrit 41.2 41.0-53.0 % Mean Corpuscular Volume 82.6 80.0-100.0 fL Mean Corpuscular Hemoglobin 25.8 L 28.0-32.0 pg Mean Corpuscular Hemoglobin Concent 31.2 L 32.0-36.0 g/dL Red Cell Distribution Width 17.2 H 11.8-14.3 % Platelet Count 305 140-450 10^3/uL Mean Platelet Volume 8.5 6.9-10.8 fL Neutrophils (%) (Auto) 74.8 37.0-80.0 % Lymphocytes (%) (Auto) 15.1 10.0-50.0 % Monocytes (%) (Auto) 7.1 0.0-12.0 % Eosinophils (%) (Auto) 2.5 0.0-7.0 % Basophils (%) (Auto) 0.5 0.0-2.0 % Neutrophils # (Auto) 6.4 1.6-8.6 10 ^3/uL Lymphocytes # (Auto) 1.3 0.4-5.4 10 ^3/uL Monocytes # (Auto) 0.6 0-1.3 10 ^3/uL Eosinophils # (Auto) 0.2 0-0.8 10 ^3/uL Basophils # (Auto) 0 0-0.2 10 ^3/uL Nucleated Red Blood Cells 0.1 % Sodium Level 140 136-145 mmol/L Potassium Level 4.1 3.5-5.1 mmol/L Chloride Level 97 L 98-107 mmol/L Carbon Dioxide Level 39 H 20-31 mmol/L Anion Gap 4 L 5-15 Blood Urea Nitrogen 12 9-23 mg/dL Creatinine 0.74 0.700-1.30 mg/dL Glomerular Filtration Rate Calc 117 >90 mL/min BUN/Creatinine Ratio 16.2 10.0-20.0 Serum Glucose 136 H 74-106 mg/dL Calcium Level 9.8 8.7-10.4 mg/dL PROCEDURE(s): CXRP - CHEST PORTABLE IMPRESSION: No acute disease. Patient alert. Came in because of trach collar. Vitals stable. Answering all questions. Chest x-ray reviewed does not show any acute process. Blood sugar elevated. He does ambulate. WBC within normal limits. Hemoglobin slightly low. Reviewed his previous visit. Explained to the patient treatment plan. Time of 1ST Reevaluation: 09:45 Reevaluation 1ST: Unchanged Patient Education/Counseling: Diagnosis, Treatment Family Education/Counseling: No Family Present Departure 1 Departure Time of Disposition: 12:08 Impression: Primary Impression: Attention to tracheostomy tube Additional Impression: Morbid obesity Disposition: ADMITTED INPATIENT Admit to: Med Surg Condition: Guarded Critical Care Note Critical Care Time?: Yes (45 min-critical care time only) Stability Stability form required: No Heart Score Heart Score: Heart Score Response (Comments) Value History N/A 0 EKG N/A 0 Age N/A 0 Risk Factors N/A 0 Troponin N/A 0 Total 0 I personally scribed for REESE MORALES MD ([email or web address]) on 08/26/24 at 09:19. E lectronically submitted by Jose Easton ([email or web address]). I personally scribed for REESE MORALES MD ([email or web address]) on 08/26/24 at 09:46. Electronically submitted by Jose SOLO). REESE MORALES MD Aug 26, 2024 09:19
--- NOTE | 2024-08-26 09:27 | DVH ---
CHEST RADIOGRAPH Indication:cough Technique: Single frontal view of the chest was obtained COMPARISON: XY CHEST PORTABLE on DOS: 02/09/24, XY CHEST PORTABLE on DOS: 10/03/23, XY CHEST PORTABLE on DOS: 10/02/23 FINDINGS: Lines and Tubes: None Lungs: Clear Pleura: No effusion. No pneumothorax. Cardiomediastinal contours: Unremarkable Bones: Unremarkable IMPRESSION: No acute disease.
[2024-08-26 09:41] LABS: Basophils # (auto) 0 10 ^3/uL (0-0.2); Eosinophils # (auto) 0.2 10 ^3/uL (0-0.8); Hemoglobin 12.9 g/dL (13.5-17.5); Monocytes # (auto) 0.6 10 ^3/uL (0-1.3)
[2024-08-26 09:44] LABS: Basophils % (auto) 0.5 % (0.0-2.0); Eosinophils % (auto) 2.5 % (0.0-7.0); Hematocrit 41.2 % (41.0-53.0); Lymphocytes # (auto) 1.3 10 ^3/uL (0.4-5.4); Lymphocytes % (auto) 15.1 % (10.0-50.0); Mean Corpuscular Hemoglobin 25.8 pg (28.0-32.0); Mean Corpuscular Hgb Conc. 31.2 g/dL (32.0-36.0); Mean Corpuscular Volume 82.6 fL (80.0-100.0); Monocytes % (auto) 7.1 % (0.0-12.0); Neutrophils # (auto) 6.4 10 ^3/uL (1.6-8.6); Neutrophils % (auto) 74.8 % (37.0-80.0); Nucleated Red Blood Cells % 0.1 %; Platelet Count (auto) 305 10^3/uL (140-450); Red Blood Cells 4.99 10^6/uL (4.5-5.90); Red Cell Distribution Width 17.2 % (11.8-14.3); White Blood Cell 8.5 10^3/uL (4.4-10.8)
[2024-08-26 10:05] LABS: Chloride 97 mmol/L (98-107); Potassium 4.1 mmol/L (3.5-5.1); Sodium 140 mmol/L (136-145)
[2024-08-26 10:06] LABS: Anion Gap 4 (5-15); Carbon Dioxide 39 mmol/L (20-31)
[2024-08-26 10:07] LABS: Calcium 9.8 mg/dL (8.7-10.4)
[2024-08-26 10:11] LABS: BUN/Creatinine Ratio 16.2 (10.0-20.0); Blood Urea Nitrogen 12 mg/dL (9-23); Glucose 136 mg/dL (74-106)
[2024-08-26 12:05] VITALS: TEMP 98
[2024-08-26] MEDS ORDERED: HYDROcodone-ACET 5/325MG TAB PO PRN (13:45)
[2024-08-26] MEDS ORDERED: ACETAMINOPHEN 500 MG TAB PO PRN (13:45)
[2024-08-26] MEDS ORDERED: MORPHINE SULFATE INJ 2 MG/ml SYRG IV PRN ×2 (13:45)
[2024-08-26] MEDS ORDERED: ONDANSETRON HCL 4 MG/2 ML VIAL IV PRN (13:45)
[2024-08-26] MEDS ORDERED: NITROGLYCERIN 0.4 MG SL TAB SL PRN (13:45)
[2024-08-26 14:05] VITALS: BP 115/59; PULSE 89; RESP 13; O2SAT 95
--- NOTE | 2024-08-26 14:41 | DVH ---
Exam: CT CHST AB PEL WO CON-NO IV/ORAL History: SOB; ABD PAIN; METASTATIC DISEASE Comparison Study: Prior films compared to study dated 02/10/24 Technique: Multidetector spiral CT of the chest, abdomen and pelvis was performed from lower neck to pubic symphysis Axial, coronal and sagittal multiplanar reformats were performed by the technologist on a separate workstation. Radiation Dose : Chest/Abdomen/Pelvis: CTDIvol 25.63 mGy, DLP 1829.6 mGy*cm. Findings: Lower neck: Tracheostomy tube in place Lungs: Curvilinear atelectasis and scarring in the lung bases. Heart/Vascular Structures: Normal heart size. No pericardial effusion. Lymph Nodes: No adenopathy Pleura: No pleural effusion or significant pneumothorax. Liver: Liver is not completely imaged. Visualized liver appears to demonstrate diffuse hepatic steat osis. Gallbladder and Biliary Tree: Unremarkable Spleen: Unremarkable Pancreas: The pancreas is normal in appearance without focal lesions or abnormal enhancement. Adrenal Glands: Fatty bilateral adrenal masses measuring up to 33 mm on the right and 51 mm on the le ft. Kidneys: Kidneys demonstrate normal symmetric enhancement without focal lesions, calculi or hydroneph rosis. Bladder: Unremarkable Bowel: The stomach is grossly normal in appearance. Small bowel and colon are normal in caliber and d istribution. Normal appendix is visualized in the right lower quadrant without findings of appendici tis. Ascites: Absent Lymphadenopathy: No mesenteric, retroperitoneal or periportal lymphadenopathy. Abdominal Wall and Mesentery: Unremarkable. Vasculature: The visualized abdominal aorta is normal in size and caliber. Abdominal and pelvic vess els demonstrate normal enhancement. Pelvic Organs: Unremarkable Musculoskeletal: No aggressive focal bony lesions, acute fractures or dislocation. IMPRESSION: 1. No acute findings involving the chest, abdomen or pelvis. Right abdomen is not completely imaged. Bilateral fatty adrenal masses measuring up to 33 mm on the right and 51 mm on the left similar to p rior. Diffuse hepatic steatosis. HS:Y
--- NOTE | 2024-08-26 16:06 | DVHINCON2 ---
Date of service: Aug 26, 2024 Referring Physician THEE Khalil/Dr Anderson Reason for Consultation Tracheostomy tube management History of Present Illness 39-year-old man history of morbid obesity, BMI 50.2, atrial fibrillation, asthma, CHF, COPD, diabetes mellitus type 2, hypertension who presented for tracheostomy tube replacement. He had a tracheostomy placed three months ago. He states he got placed at [place]. Needs tracheostomy tube replacement every three months and states that he had home health but they told him to come to the emergency department to have the tracheostomy tube replaced. He had to place due to large tongue cut enough O2 supply to his lungs likely obstructive sleep apnea. He denies any chest pain, shortness of breath, cough, chills, headache, dizziness, nausea or vomiting. He has a Passy Andrzej valve in place. Pulmonary consultation is called for tracheostomy management. Review of systems: 14 point review of systems is negative unless otherwise noted above. Past medical history:morbid obesity, BMI 50.2, atrial fibrillation, asthma, CHF, COPD, diabetes mellitus type 2, hypertension Past surgical history: tracheostomy tube placement Medications: Reviewed. Allergies: Hydromorphone Family history: No family history of premature CAD. No family history of lung disease Family history is notable for cancer. Social history: Nonsmoker. No alcohol or illicit drug use. Lives at home. Family History: Patient reports no known family medical history. Allergies: Coded Allergies: Hydromorphone (Verified Allergy, Unknown, 02/11/24) Home Meds Active Scripts Atorvastatin Calcium (ATORVASTATIN CALCIUM) 20 Mg Tab, 40 MG PO HS for 30 Days, #30 TAB Prov:ARELY MCINTYRE MD 09/02/23 Furosemide (Lasix) 20 Mg Tb, 1 TAB PO DAILY, #30 TAB 5 Refills Prov:ARELY MCINTYRE MD 09/02/23 Reported Medications Gabapentin (Gabapentin) 100 Mg Cap, 1 CAP PO DAILY 02/10/24 Valproic Acid (Valproic Acid) 250 Mg Cap, 1 TAB PO TID 02/10/24 Clonidine Hydrochloride (Clonidine Hcl) 0.2 Mg Tab, 1 TAB PO TID 02/10/24 Metoprolol Tartrate (Metoprolol Tartrate) 25 Mg Tab, 100 MG PO BID for 30 Days, MG 08/31/23 Aripiprazole (Abilify) 20 Mg Tab, 30 MG PO DAILY, TAB 08/30/23 Insulin Lispro (Human) (Humalog) 100 Unit/Ml Inj, 100 UNIT SC, INJ 08/30/23 Famotidine (PEPCID TABLET) 20 Mg Tb, 1 TAB PO HS, #60 TAB 5 Refills 08/30/23 Lorazepam (ATIVAN TABLET) 0.5 Mg Tb, 1 TAB PO Q6HP PRN for ANXIETY, #90 TAB 08/30/23 Apixaban Base (ELIQUIS) 5 Mg Tab, 5 MG PO BID, TAB 08/30/23 Metformin Hydrochloride (Metformin Hcl) 500 Mg Tab, 1000 MG PO BID for 30 Days, MG 08/30/23 Current Medications Current Medications Medications (Trade) Dose Ordered Sig/Anamaria Route PRN Reason Start Time Stop Time Status Last Admin Nitroglycerin (Ntrostat Sublingual) 0.4 mg Q5MINP PRN SL FOR CHEST PAIN 08/26/24 13:45 08/26/24 14:31 DC Morphine Sulfate 2 mg Q30M PRN IV FOR CHEST PAIN 08/26/24 13:45 08/26/24 14:31 DC Morphine Sulfate 1 mg Q4HPRN PRN IV SEVERE PAIN (7-10 PAIN SCALE) 08/26/24 13:45 08/26/24 14:31 DC Acetaminophen/ Hydrocodone Bitart (Adams 5/325MG Tab) 1 tab Q6HPRN PRN PO MODERATE PAIN (4-6 PAIN SCALE) 08/26/24 13:45 08/26/24 14:31 DC Acetaminophen (Tylenol Tablet) 500 mg Q8HP PRN PO PAIN SCALE 1-3 OR TEMP>100.4 08/26/24 13:45 08/26/24 14:31 DC Ondansetron HCl (Zofran) 4 mg Q6HP PRN IV NAUSEA / VOMITING 08/26/24 13:45 08/26/24 14:31 DC Vital Signs Vital Signs Date Time Temp Pulse Resp B/P (MAP) Pulse Ox O2 Delivery O2 Flow Rate FiO2 08/26/24 14:05 89 13 115/59 (77) 95 08/26/24 12:05 98.0 98.0 08/26/24 09:10 Trach Collar 4 N/A Physical Exam Gen.: Patient lying in bed in no apparent distress. On supplemental oxygen via trach collar. Head: Normocephalic, atraumatic Eyes: EOMI/PERRLA. Ears: Normal hearing. Normal anatomy. Neck/trachea: Trachea midline, supple. Nose: Normal external anatomy. Mouth: Moist mucous membranes. Chest: Decrease air entry bilaterally. No wheezing or rhonchi. Cardio vascular: Positive S1, positive S2. Regular rate and rhythm. Abdomen: Positive bowel sounds in all 4 quadrants. Soft, non-tender, non- distended. : Deferred. Rectal: Deferred Skin: Warm, dry. Intact. Extremities: 2+ radial pulses bilaterally. No lower extremity edema. Neuro: Awake, alert, oriented x3. No gross motor or sensory deficits. Cranial nerves II through XII intact. Gait not assessed. Labs/Diagnostic Data Labs Test 08/26/24 09:13 Range/Units White Blood Count 8.5 4.4-10.8 10^3/uL Red Blood Count 4.99 4.5-5.90 10^6/uL Hemoglobin 12.9 L 13.5-17.5 g/dL Hematocrit 41.2 41.0-53.0 % Mean Corpuscular Volume 82.6 80.0-100.0 fL Mean Corpuscular Hemoglobin 25.8 L 28.0-32.0 pg Mean Corpuscular Hemoglobin Concent 31.2 L 32.0-36.0 g/dL Red Cell Distribution Width 17.2 H 11.8-14.3 % Platelet Count 305 140-450 10^3/uL Mean Platelet Volume 8.5 6.9-10.8 fL Neutrophils (%) (Auto) 74.8 37.0-80.0 % Lymphocytes (%) (Auto) 15.1 10.0-50.0 % Monocytes (%) (Auto) 7.1 0.0-12.0 % Eosinophils (%) (Auto) 2.5 0.0-7.0 % Basophils (%) (Auto) 0.5 0.0-2.0 % Neutrophils # (Auto) 6.4 1.6-8.6 10 ^3/uL Lymphocytes # (Auto) 1.3 0.4-5.4 10 ^3/uL Monocytes # (Auto) 0.6 0-1.3 10 ^3/uL Eosinophils # (Auto) 0.2 0-0.8 10 ^3/uL Basophils # (Auto) 0 0-0.2 10 ^3/uL Nucleated Red Blood Cells 0.1 % Sodium Level 140 136-145 mmol/L Potassium Level 4.1 3.5-5.1 mmol/L Chloride Level 97 L 98-107 mmol/L Carbon Dioxide Level 39 H 20-31 mmol/L Anion Gap 4 L 5-15 Blood Urea Nitrogen 12 9-23 mg/dL Creatinine 0.74 0.700-1.30 mg/dL Glomerular Filtration Rate Calc 117 >90 mL/min BUN/Creatinine Ratio 16.2 10.0-20.0 Serum Glucose 136 H 74-106 mg/dL Calcium Level 9.8 8.7-10.4 mg/dL Assessment Impression: Status post tracheostomy Obstructive sleep apnea COPD Asthma Morbid obesity, BMI 50.2 Adrenal masses Plan: CT abdomen and pelvis report reviewed. CT of the chest report and images reviewed. No acute pleural effusion or pneumothorax. No pericardial effusion. No adenopathy. Atelectasis at the lung bases. Tracheostomy tube in place. On supplemental oxygen via trach collar Trach tube was replaced. Shiley 5.0 Head of elevation Aspiration pre-cautions. Incentive spirometry Diet and lifestyle modifications for weight reduction as obesity complicates all care. F/u with PCP for Bilateral fatty adrenal masses up to 33 mm on the right and 51 mm on left. DVT prophylaxis Prognosis: Poor given multiple comorbidities. Rest of plan per hospitalist and other consultants. Thank you Dr. Anderson/THEE Khalil for allowing me to participate in this patient's care. Further recommendations will depend on patient's clinical course. Please do not hesitate to contact me if you have any questions or concerns. This medical document was created using an electronic medical record system with [employer] dictation system. Although this document has been carefully reviewed, there may still be some phonetic and typographical errors. These areas are purely typographical due to imperfections of the software programs, and do not reflect any compromise in the patient's medical care. Plan discussed with: Patient, Other (RN , [employer] TECHNICIAN) FLORENCIA GARZA MD Aug 26, 2024 16:06
== END 2024-08-26 14:37 | disposition home or self-care (01) | DRG 143 ==
LOC: ER 08:56 → EDBD 08:56 → TELE 13:37
PROVIDERS: ADMIT Nurse Practitioner Acute Care; ATTEND Nurse Practitioner Acute Care
PROC: 0B21XFZ Change Tracheostomy Device in Trachea, External Approach (ICD-10-PCS; principal; 2024-08-26)
DX: Z43.0 Encounter for attention to tracheostomy (principal); I11.0 Hypertensive heart disease with heart failure; I50.9 Heart failure, unspecified; Z68.43 Body mass index [BMI] 50.0-59.9, adult; E66.01 Morbid (severe) obesity due to excess calories; J44.89 Other specified chronic obstructive pulmonary disease; G47.33 Obstructive sleep apnea (adult) (pediatric); E11.65 Type 2 diabetes mellitus with hyperglycemia; I48.91 Unspecified atrial fibrillation; Z79.84 Long term (current) use of oral hypoglycemic drugs; Z79.4 Long term (current) use of insulin
CPT/HCPCS: 36415; 71045; 71250; 74176; 80048; 85025; 99291; G0378